=== PATIENT | male | born 1960 | race Caucasian/White ===

== ENCOUNTER 2025-06-28 15:01 | Inpatient (IN) | payer MEDICARE, OTHER ==
[~2025-06-28] VITALS: Ht 180.3 cm; Wt 103.9 kg
[2025-06-28] MEDS ORDERED: IOHEXOL-350 100 ML VIAL IV ONE (15:14)
[2025-06-28 15:42] LABS: PLATELET COUNT (AUTO) 288 K/uL (150-450); RED BLOOD CELL COUNT(AUTO) 4.00 MIL/uL (4.5-6.0); RED CELL DISTRIBUTION WIDTH 19.2 % (11.5-15.0); WHITE BLOOD COUNT (AUTO) 5.3 K/uL (4.3-11.0)
[2025-06-28 15:49] LABS: CALCIUM, SERUM 8.2 mg/dL (8.5-10.1); CREATININE 1.1 mg/dL (0.6-1.3); SODIUM SERUM 139 mmol/L (136-145); UREA NITROGEN, BLOOD 11 mg/dL (7-18)
[2025-06-28 15:50] LABS: ALCOHOL, BLOOD < 3 mg/dL (0-10)
[2025-06-28] MEDS ORDERED: CALC1TAB30 PO (16:12)
[2025-06-28] MEDS ORDERED: NICO-762 TP (16:12)
[2025-06-28] MEDS ORDERED: GABA-536 PO (16:12)
[2025-06-28] MEDS ORDERED: CHOL500062 PO (16:12)
[2025-06-28] MEDS ORDERED: PANT40TA49 PO (16:12)
[2025-06-28] MEDS ORDERED: ATOR10TA PO (16:12)
[2025-06-28] MEDS ORDERED: HYDR-3976 PO (16:12)
[2025-06-28 17:56] LABS: APPEARANCE,URINE CLEAR (CLEAR); BLOOD, URINE Trace-intact Ery/uL (NEGATIVE); LEUKOCYTE ESTERASE ,URINE Negative (NEGATIVE); NITRITE, URINE NEGATIVE (NEGATIVE); UGLUCOSE Negative (NEGATIVE)
[2025-06-28 18:02] LABS: ADD URINE CULTURE NO; AMPHETAMINE, URINE NEGATIVE (NEGATIVE); BARBITURATE, URINE NEGATIVE (NEGATIVE); BENZODIAZEPINE, URINE NEGATIVE (NEGATIVE); CANNABINOID, URINE NEGATIVE (NEGATIVE); COCCAINE, URINE NEGATIVE (NEGATIVE); OPIATE, URINE POSITIVE (NEGATIVE); SQUAMOUS EPITHELIAL CELL,UR None Seen /HPF (None Seen)
[2025-06-28] MEDS ORDERED: HYDROCODONE/APAP 7.5/325MG 1 EACH TABLET PO PRN (21:30)
[2025-06-28] MEDS ORDERED: MAG HYDROX/AL HYDROX/SIMETH 30 ML UDC PO PRN (21:30)
[2025-06-28] MEDS ORDERED: ONDANSETRON HCL/PF 4 MG/2 ML VIAL IVP PRN (21:30)
[2025-06-28] MEDS ORDERED: MAGNESIUM HYDROXIDE 30 ML UDC PO PRN (21:30)
[2025-06-28] MEDS: ATORVASTATIN 40 MG TABLET PO SCH (21:40)
[2025-06-28] MEDS: GABAPENTIN 400 MG CAPSULE PO SCH (21:40)
[2025-06-28] MEDS: CLOPIDOGREL BISULFATE 75 MG TABLET PO SCH (21:40)
[2025-06-28] MEDS: ASPIRIN EC 81 MG TABLET.DR PO SCH (21:40)
[2025-06-28] MEDS: HYDROCODONE/APAP 5/325MG TABLET PO PRN (21:42)
[2025-06-28] MEDS: POTASSIUM CHLORIDE 20 MEQ TAB.PRT.SR PO ONE (23:13)
[2025-06-29] VITALS: BP 115/71; TEMP 98.2; O2SAT 94
[2025-06-29 04:00] VITALS: BP 121/89; TEMP 97.9; O2SAT 94
[2025-06-29] MEDS: ACETAMINOPHEN 325 MG TABLET PO PRN (04:39)
[2025-06-29] MEDS: PANTOPRAZOLE 40 MG TABLET.DR PO SCH (06:34)
[2025-06-29] MEDS ORDERED: PANTOPRAZOLE 40 MG TABLET.DR PO SCH (07:30)
[2025-06-29 07:31] LABS: PLATELET COUNT (AUTO) 243 K/uL (150-450); RED BLOOD CELL COUNT(AUTO) 3.35 MIL/uL (4.5-6.0); RED CELL DISTRIBUTION WIDTH 19.5 % (11.5-15.0); WHITE BLOOD COUNT (AUTO) 4.3 K/uL (4.3-11.0)
[2025-06-29 07:36] LABS: INR 0.99 (0.91-1.10)
[2025-06-29 08:00] VITALS: BP 122/80; TEMP 98.1; O2SAT 95
[2025-06-29 08:36] LABS: ASPARTATE AMINOTRANSFERASE 20 U/L (15-37); CALCIUM, SERUM 8.1 mg/dL (8.5-10.1); CREATININE 0.9 mg/dL (0.6-1.3); PHOSPHORUS 3.7 mg/dL (2.5-4.9); SODIUM SERUM 143 mmol/L (136-145); TOTAL PROTEIN, SERUM 6.2 g/dL (6.4-8.2); UREA NITROGEN, BLOOD 9 mg/dL (7-18)
[2025-06-29 08:52] LABS: LDL 37 mg/dL (0-99)
[2025-06-29] MEDS: NICOTINE PATCH (21MG) 21 MG PATCH.TD24 TD SCH (09:00)
[2025-06-29] MEDS: CHOLECALCIFEROL 1,000 UNIT TABLET (VIT D3) PO SCH (09:47)
[2025-06-29] MEDS: CALCIUM CARB 600MG /VIT D 1 EACH TABLET PO SCH (09:56)
[2025-06-29 11:30] VITALS: BP 120/87; TEMP 98.1; O2SAT 99
[2025-06-29 16:00] VITALS: BP 123/90; TEMP 98.2; O2SAT 98
[2025-06-29 20:00] VITALS: BP_SYST 138; BP_SYST 146; BP_DIAS 105; BP_DIAS 86; TEMP 98.1; TEMP 98.2; O2SAT 100; O2SAT 96
[2025-06-30] VITALS: BP 144/89; TEMP 98.1; O2SAT 97
[2025-06-30 00:11] VITALS: BP 144/89; TEMP 98.1; O2SAT 97
[2025-06-30 04:00] VITALS: BP 122/75; TEMP 98.2; O2SAT 95
[2025-06-30 04:21] VITALS: BP 122/75; TEMP 98.2; O2SAT 95
[2025-06-30 08:00] VITALS: BP 131/87; TEMP 98.1; O2SAT 96
[2025-06-30] MEDS ORDERED: PRED50TA PO (09:44)
== END 2025-06-30 13:25 | disposition home health service (06) | DRG 74 ==
LOC: ER 15:03 → TELE 18:10
PROVIDERS: ADMIT Nurse Practitioner Family; ATTEND Internal Medicine
DX: M54.12 Radiculopathy, cervical region (principal); D68.59 Other primary thrombophilia; I69.354 Hemiplegia and hemiparesis following cerebral infarction affecting left non-dominant side; E66.9 Obesity, unspecified; G89.29 Other chronic pain; Z88.0 Allergy status to penicillin; E87.6 Hypokalemia; Z99.3 Dependence on wheelchair; Z68.31 Body mass index [BMI] 31.0-31.9, adult; M75.41 Impingement syndrome of right shoulder
CPT/HCPCS: 36415; 70450-TC; 70496-TC; 70498-TC; 71045-TC; 80048-TC; 80061-TC; 80076-TC; 81001; 83735-TC; 84100-TC; 84443-TC; 84484-TC; 85025-TC; 85610-TC; 85730-TC; 92526; 92611; 93307-TC; 97110-TC; 97112-TC; 97116-TC; 97530-TC; 97535-TC; G0378; G0480; Q9967